=== PATIENT | female | born 1930 | race Caucasian/White ===

== ENCOUNTER 2016-12-14 20:40 | Emergency (ER) | payer MEDICARE ==
[~2016-12-14] VITALS: Ht 158.8 cm; Wt 77.3 kg
[~2016-12-14 20:40] MED LIST: ALBU18HF INH; AMLO2.5T PO; EPIN0.3P2 IJ; GLIM2TAB2 PO; HYDR-3825 PO; HYDR-4003 PO; LETR2.5T4 PO; LEVO112T4 PO; LOPE1TAB13 PO; METO-272 PO; OMEP20CA11 PO; ONDA-53 PO; SIMV40TA5 PO; WARF4TAB6 PO
[2016-12-14 20:49] VITALS: BP 153/91; PULSE 89; RESP 15; O2SAT 97
[2016-12-14 21:12] LABS: BASOPHILS % (AUTO) 0.5 % (0-3); EOSINOPHILS % (AUTO) 1.3 % (0-5); Mean Corpuscular Hemoglobin 30.6 pg (27.0-35.0); Mean Corpuscular Volume 93.9 fL (81-100); NEUTROPHILS % (AUTO) 73.7 % (40-74); Platelet Count 310 bil/L (150-400)
--- NOTE | 2016-12-14 21:35 | DRSVH ---
PROCEDURE: X-RAY CHEST, TWO VIEWS ([id number]) INDICATIONS: CHEST PAIN TECHNIQUE: 2 views of the chest were acquired. COMPARISON: [facility], CR, XR CHEST 1VW (PORTABLE), 11/05/2016, 14:46. FINDINGS: Surgical changes and devices: Cholecystectomy clips, left upper quadrant abdominal surgical clips an d left breast surgical clips are noted. Lungs and pleura: No pleural effusions or pneumothorax. Lungs are clear. Mediastinum: Mediastinal contours are normal. Heart size is normal. Bones and chest wall: No suspicious bony abnormalities. Soft tissues appear unremarkable. IMPRESSION: No acute cardiopulmonary disease process. Dictated by: Luisa Meadows MD, PhD on 12/14/2016 at 21:34 Approved by: Luisa Meadows MD, PhD on 12/14/2016 at 21:34
[2016-12-14 21:41] LABS: TROPONIN T 0.01 ug/L (0.0-0.011)
[2016-12-14 21:43] LABS: Magnesium 1.2 mg/dL (1.6-2.6)
[2016-12-14 23:10] VITALS: BP 157/63; PULSE 67; RESP 12; O2SAT 98
--- NOTE | 2016-12-15 01:29 | ED.REPORT ---
HPI-Chest Pain 40 and Over Date of Service Dec 15, 2016 ED Provider: Diomedes Patel MD Pt is an 86 y/o female w/ a hx of T2DM, HTN, hyperlipidemia, paroxysmal SVT, hypomagnesemia, presenting to the ED c/o intermittent rapid palpitations onset 1830 today. She has a history of near-syncopal episodes associated with rapid palpitations and has come in many times with negative workups. She comes in today because she felt another episode of rapid palpitations with associated lightheadedness mostly when she stands up from sitting down. She denies fever, chills, CP, SOB. Her magnesium was stopped because it was causing her constipation. Nursing Notes Stated Complaint: FAST HEARTBEAT, HIGH BLOOD PRESSURE Chief Complaint: Dysrhythmia/Cardiac Nursing Notes Reviewed: Yes Allergies: Coded Allergies: Quinolones (Verified Allergy, Severe, 11/05/16) Salicylates (Verified Allergy, Severe, 11/05/16) Sulfa (Sulfonamide Antibiotics) (Verified Allergy, Severe, 11/05/16) aspirin (Verified Allergy, Severe, 11/05/16) atorvastatin (Verified Allergy, Severe, 11/05/16) adhesive (Verified Allergy, Unknown, unkown, 11/05/16) banana (Verified Allergy, Unknown, 11/05/16) doxycycline (Verified Allergy, Unknown, 11/05/16) glyburide (Verified Allergy, Unknown, 03/04/15) levofloxacin (Verified Allergy, Unknown, 12/14/16) Oat (Verified Adverse Reaction, Mild, HEARTBURN, 11/05/16) [place] (Verified Adverse Reaction, Mild, ABD PAIN, 11/05/16) Wheat (Verified Adverse Reaction, Mild, PAIN IN ABD, 11/05/16) Uncoded Allergies: Nuts (not peanuts) (Adverse Reaction, Severe, Anaphylaxis, 10/31/14) Scheduled Amlodipine (Amlodipine) 2.5 Mg Tablet 2.5 MG PO DAILY Glimepiride (Glimepiride) 2 Mg Tablet 1 MG PO DAILYAC Letrozole (Letrozole) 2.5 Mg Tablet 2.5 MG PO DAILY Levothyroxine (Levothyroxine) 112 Mcg Tablet 56 MCG PO DAILY Magnesium Chloride (Slow-Mag) 64 Mg Tablet 64 MG PO QID Metoprolol Succinate ER (Metoprolol Succinate ER) 50 Mg Tab.er.24h 50 MG PO BID Omeprazole (Omeprazole) 20 Mg Capsule.dr 20 MG PO DAILY Ondansetron (Ondansetron) 4 Mg Tablet 8 MG PO BID Simvastatin (Simvastatin) 40 Mg Tablet 40 MG PO HS Warfarin Sodium (Warfarin Sodium) 4 Mg Tablet 6 MG PO WED & SAT Warfarin Sodium (Warfarin Sodium) 4 Mg Tablet 4 MG PO DAILY EXC WE,SAT Scheduled PRN Albuterol Sulfate (Ventolin HFA Inhaler) 200 Puff/18 Gm Inhaler 2 PUFF INH Q4- 6H PRN PRN For Wheezing Hydrocodone-Acetaminophen 5-325 mg (Hydrocodone-Acetaminophen 5-325 mg) 1 Each Tablet 1 TABLET PO Q6H PRN PRN For Pain Hydrocodone-Acetaminophen 7.5-325 mg (Hydrocodone-Acetaminophen 7.5-325 mg) 1 Each Tablet 1 EACH PO Q6H PRN PRN For Pain Loperamide/Simethicone (Imodium Multi-Symptom Rel Cplt) 1 Each Tablet 2 EACH PO BID PRN PRN For Diarrhea or Loose Stool Miscellaneous Medications Epinephrine (Epipen 2-Reid) 0.3 Mg/0.3 Ml Auto.injct 0.3 MG IJ General Time Seen by MD: 00:25 Chief Complaint Other (Palpitations) Hx Obtained From: Patient Arrived By: Walk-in Sudden in Onset?: Yes Onset Occurred: 5 - 8 hours ago Symptom Duration: Since onset Severity: Current: No pain currently Severity: Maximum: No pain Recent Healthcare: Previous diagnosis, Prior workup Similar Sx Previous: Yes Past Medical History Past Medical History Notes: Oncologist for Stage 1 Breast CA: Fredrick Peoples Past Medical History 1. Type 2 mlc-syvhtpa-ieeclmqao diabetes since 1993. 2. History of pulmonary embolus in 2008 on chronic anticoagulation. 3. Hypertension. 4. Hyperlipidemia. 5. Excess weight. 6. Gastroesophageal reflux disease. 7. Hypothyroidism. 8. History of colon polyps. 9. History of pyelonephritis with left partial nephrectomy in 1999. 10. History of supraventricular tachycardia. 11. Chronic back pain. 12. Total hip arthroplasty in 2005. 13. Hypomagnesemia. Reports: Cancer Past Surgical History Shoulder surgery Hip replacement Partial nephroctomy due to pyelonephritis Tubal repair Partial Mastectomy Reports: Appendectomy, Cholecystectomy Smoking History Never Smoker Social History Alcohol Use: Denies alcohol use Drug Use: Denies drug use Other Social History: Local resident Ambulatory Status Independent Review of Systems Constitutional: Denies: Chills, Fever Cardiovascular: Reports: Palpitations, Denies: Chest pain GI: Denies: Nausea, Vomiting Skin: Denies Diaphoresis Neurologic: Reports: Lightheaded Complete sys rev & neg: except as marked. Physical Exam Initial Vital Signs Vital Signs (First) Date Time Temp Pulse Resp B/P Pulse Ox O2 Delivery O2 Flow Rate FiO2 12/14/16 20:49 36.8 89 15 153/91 97 Room Air Initial VS: Reviewed, Vital signs normal Head / Eyes: Atraumatic, Normocephalic, PERRL ENT: Mucous membranes moist, Conjunctiva normal, No scleral icterus Neck: Supple, Full range of motion Extremities: Vascular intact, Neuro intact, No swelling, No tenderness Skin: Warm, Dry, No cyanosis Neurologic: Alert, Oriented, Nonfocal Psychiatric: Mood/affect normal, Behavior normal, Normal thought content General/Constitutional: Awake, Alert, No acute distress, Well appearing, Cooperative, Not toxic appearing Respiratory / Chest: Atraumatic, Breath sounds NL, Breath sounds = bilat, No respiratory distress, No rales, No rhonchi, No wheezing, No retractions, No stridor, No chest tenderness, No chest wall deformity, No crepitus Cardiovascular: Heart rate NL, Heart sounds NL, No gallop, No murmurs, No rubs , Cap refill not delayed, Peripheral circulation NL Infrequent pauses Abdomen: Atraumatic, Soft Interpretation & Diagnostics Lab Results Interpretation Result Diagram: 12/14/16210412/14/16 210 Test 12/14/16 21:05 White Blood Count 8.5th/mm3 (3.8-10.1) Red Blood Count 3.79mil/mm3 (3.90-5.20) Hemoglobin 11.6g/dL (12.0-15.6) Hematocrit 35.6% (35.0-46.0) Mean Corpuscular Volume 93.9fL (81-100) Mean Corpuscular Hemoglobin 30.6pg (27.0-35.0) Mean Corpuscular Hemoglobin Concent 32.6% (32.0-37.0) Red Cell Distribution Width 12.1% (12.3-15.4) Platelet Count 310bil/L (150-400) Neutrophils (%) (Auto) 73.7% (40-74) Lymphocytes (%) (Auto) 18.3% (14-46) Monocytes (%) (Auto) 6.0% (4-12) Eosinophils (%) (Auto) 1.3% (0-5) Basophils (%) (Auto) 0.5% (0-3) Sodium Level 140mEq/L (134-144) Potassium Level 4.7mEq/L (3.5-5.2) Chloride Level 100mEq/L (97-108) Carbon Dioxide Level 26mmol/L (18-29) Blood Urea Nitrogen 24mg/dL (8-27) Creatinine 1.21mg/dL (0.57-1.00) Estimat Glomerular Filtration Rate 61mL/min (>59) Glucose Level 241mg/dL (60-99) Calcium Level 9.3mg/dL (8.5-10.1) Magnesium Level 1.2mg/dL (1.6-2.6) Total Bilirubin 0.3mg/dL (0.0-1.2) Aspartate Amino Transf (AST/SGOT) 20U/L (0-50) Alanine Aminotransferase (ALT/SGPT) 15U/L (0-32) Alkaline Phosphatase 23U/L (25-165) Troponin T 0.010ug/L (0.0-0.011) Total Protein 7.2g/dL (6.4-8.4) Albumin 3.9g/dL (3.4-5.0) Hold Espino Top Tube Received (Received) Lab Results Interpretation: Hyperglycemia and hypomagnesemia. ECG Interpretation ECG Interpretation: Sinus rhythm rate 70 No QT prolongation Prolonged WI interval - WI 296 Review of remote telemetry shows 5-6 sinus pauses and 5-6 PVCs Time: 01:39 Interpreted by: ED physician Normal ECG Interpretation: No acute ischemic changes X-Ray Chest Interpretation Chest Xray Interpretation: IMPRESSION: No acute cardiopulmonary disease process. Dictated by: Luisa Meadows MD, PhD on 12/14/2016 at 21:34 Approved by: Luisa Meadows MD, PhD on 12/14/2016 at 21:34 View: Portable, AP & lat Interpretation / Wet Read by: Interpret - Radiologist Re-Eval/Medical Decision Med Decision/Clinical Course 86-year-old female who presents with palpitations. She is in the past been known to have low magnesium but has not been taking her magnesium because she says it makes her constipated. She is found on laboratory testing to have low magnesium at 1.2. She was given 4 mg of IV magnesium and encouraged to restart her oral magnesium, using MiraLAX if it truly does cause constipation. 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 No higher grade arrhythmia was noted. She is being referred back to her primary doctor for recheck of her magnesium and possible long-term cardiac monitoring. Time of Eval: 05:06 Re-Evaluation/Progress Note: Pt rechecked after magnesium infusion is complete. Informed pt of plan for treatment. Pt understands and agrees with plan for treatment. F/U instructions and RTER warnings given. All questions addressed. 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 Neither of these is particularly dangerous. You also had low magnesium and these may be related to low magnesium. You need to restart magnesium, prescription included below. Magnesium usually treats constipation but you can use MiraLAX if you need to for constipation. Follow up with your regular doctor for repeat magnesium level in the next week or so. Referrals: Travis Betts (PCP) Sanketibroyce Attestation Portions of this note were transcribed by Bala Anders. I, Dr. Patel personally performed the history, physical exam and medical decision-making; I reviewed and confirmed the accuracy of the information in the transcribed note. Signed by Eboni Rogel, 12/15/16 - 0200 copies to: Travis Betts Howard L MD Dec 15, 2016 01:29 BALA ANDERS Dec 15, 2016 01:31
[2016-12-15] MEDS ORDERED: Magnesium Sulf 4 Gm/100 mL H2O 4 GM in IV Premix 1 EACH IV ONE (01:30)
[2016-12-15 04:18] VITALS: BP 164/67; PULSE 67; RESP 14; O2SAT 96
[2016-12-15] MEDS ORDERED: SLO64 PO (05:11)
[2016-12-15 05:25] VITALS: BP 133/57; PULSE 63; RESP 16; O2SAT 95
[2017-01-17] MEDS ORDERED: CHOL500011 PO (14:38)
[2017-01-17] MEDS ORDERED: MAGN250T29 PO (14:38)
[2017-01-17] MEDS ORDERED: PRAV10TA2 PO (14:38)
== END 2016-12-15 05:26 | disposition home or self-care (01) ==
LOC: SED 20:40
DX: E83.42 Hypomagnesemia (principal); I49.8 Other specified cardiac arrhythmias; I49.3 Ventricular premature depolarization; R42 Dizziness and giddiness; E11.65 Type 2 diabetes mellitus with hyperglycemia; I10 Essential (primary) hypertension; E78.5 Hyperlipidemia, unspecified; K21.9 Gastro-esophageal reflux disease without esophagitis; Z86.79 Personal history of other diseases of the circulatory system; Z79.01 Long term (current) use of anticoagulants; Z86.711 Personal history of pulmonary embolism; Z88.1 Allergy status to other antibiotic agents; Z88.8 Allergy status to other drugs, medicaments and biological substances; Z88.2 Allergy status to sulfonamides; Z88.6 Allergy status to analgesic agent

== ENCOUNTER 2017-06-04 06:58 | Emergency (ER) | payer MEDICARE ==
[~2017-06-04] VITALS: Ht 157.5 cm; Wt 77.3 kg
[~2017-06-04 06:58] MED LIST changes: +CHOL500011 PO; -HYDR-4003 PO; +MAGN250T29 PO; -ONDA-53 PO; +PRAV10TA2 PO; -SIMV40TA5 PO
[2017-06-04 07:01] VITALS: BP 194/74; PULSE 64; RESP 18; O2SAT 97
--- NOTE | 2017-06-04 07:13 | ED.REPORT ---
HPI-General Illness Date of Service Jun 04, 2017 ED Provider: Amelia Manrique MD Pt is an 87 year old female with a history of HTN, breast cancer, DM, A-fib, and hyperlipidemia who presents to the ED with concerns about a low blood pressure reading. She c/o associate malaise. She denies any other symptoms. The pt reports that her blood pressure was 129/45 at home and that this has not happened previously. She states that her "head feels funny". She has had a stressful few days with her home living situation as well as quite a bit of paddy and work yesterday. She was wondering if she was perhaps "listing" to the left for a bit yesterday. This has resolved. She notes that a sister and brother have both had strokes and she was concerned. She has no other signs or symptoms of stroke at this time. With her hypertension and atrial fibrillation she certainly has risk factors. Nursing Notes Stated Complaint: LOW BLOOD PRESSURE Chief Complaint: General Complaint Nursing Notes Reviewed: Yes Allergies: Coded Allergies: Quinolones (Verified Allergy, Severe, 11/05/16) Salicylates (Verified Allergy, Severe, 11/05/16) Sulfa (Sulfonamide Antibiotics) (Verified Allergy, Severe, 11/05/16) aspirin (Verified Allergy, Severe, 11/05/16) atorvastatin (Verified Allergy, Severe, 11/05/16) adhesive (Verified Allergy, Unknown, unkown, 11/05/16) banana (Verified Allergy, Unknown, 11/05/16) doxycycline (Verified Allergy, Unknown, 11/05/16) glyburide (Verified Allergy, Unknown, 03/04/15) levofloxacin (Verified Allergy, Unknown, 12/14/16) Oat (Verified Adverse Reaction, Mild, HEARTBURN, 11/05/16) [place] (Verified Adverse Reaction, Mild, ABD PAIN, 11/05/16) Wheat (Verified Adverse Reaction, Mild, PAIN IN ABD, 11/05/16) Uncoded Allergies: Nuts (not peanuts) (Adverse Reaction, Severe, Anaphylaxis, 10/31/14) Scheduled Cholecalciferol (Vitamin D3) (Vitamin D3) 5,000 Unit Tablet 5,000 UNIT PO DAILY Glimepiride (Glimepiride) 2 Mg Tablet 1 MG PO DAILYAC Levothyroxine (Levothyroxine) 112 Mcg Tablet 56 MCG PO DAILY Magnesium Oxide (Magnesium) 250 Mg Tablet 250 MG PO DAILY Metoprolol Succinate ER (Metoprolol Succinate ER) 50 Mg Tab.er.24h 50 MG PO BID Omeprazole (Omeprazole) 20 Mg Capsule.dr 20 MG PO DAILY Pravastatin (Pravastatin) 10 Mg Tablet 10 MG PO HS Warfarin Sodium (Warfarin Sodium) 4 Mg Tablet 4 MG PO DAILY Scheduled PRN Albuterol Sulfate (Ventolin HFA Inhaler) 200 Puff/18 Gm Inhaler 2 PUFF INH Q4- 6H PRN PRN For Wheezing Hydrocodone-Acetaminophen 7.5-325 mg (Hydrocodone-Acetaminophen 7.5-325 mg) 1 Each Tablet 1 EACH PO Q6H PRN PRN For Pain Loperamide/Simethicone (Imodium Multi-Symptom Rel Cplt) 1 Each Tablet 2 EACH PO BID PRN PRN For Diarrhea or Loose Stool Miscellaneous Medications Epinephrine (Epipen 2-Reid) 0.3 Mg/0.3 Ml Auto.injct 0.3 MG IJ General Time Seen by MD: 07:11 Chief Complaint Other (Low blood pressure) Hx Obtained From: Patient Arrived By: Walk-in Sudden in Onset?: No Onset Occurred: Just prior to arrival Symptom Duration: Since onset Severity: Current: No pain currently Severity: Maximum: No pain Recent Healthcare: Recent doctor visit Similar Sx Previous: No Past Medical History Past Medical History Notes: Oncologist for Stage 1 Breast CA: Fredrick Peoples Past Medical History 1. Type 2 uoy-dojjuhx-xyjkneosu diabetes since 1993. 2. History of pulmonary embolus in 2008 on chronic anticoagulation. 3. Hypertension. 4. Hyperlipidemia. 5. Excess weight. 6. Gastroesophageal reflux disease. 7. Hypothyroidism. 8. History of colon polyps. 9. History of pyelonephritis with left partial nephrectomy in 1999. 10. History of supraventricular tachycardia. 11. Chronic back pain. 12. Total hip arthroplasty in 2005. 13. Hypomagnesemia. Reports: Cancer Past Surgical History Shoulder surgery Hip replacement Partial nephroctomy due to pyelonephritis Tubal repair Partial Mastectomy Reports: Appendectomy, Cholecystectomy Smoking History Never Smoker Social History Alcohol Use: Denies alcohol use Drug Use: Denies drug use Other Social History: Local resident Ambulatory Status Independent Review of Systems + low blood pressure (129/45) Full Review of Systems Constitutional: Reports: Malaise, Denies: Fever Respiratory: Denies: Non-productive cough, Shortness of breath Complete sys rev & neg: except as marked. Physical Exam Vital Signs Vital Signs Date Time Temp Pulse Resp B/P Pulse Ox O2 Delivery O2 Flow Rate FiO2 06/04/17 07:16 64 12 179/84 100 Room Air 06/04/17 07:01 36.6 64 18 194/74 97 Room Air Initial VS: Reviewed Head / Eyes: Atraumatic, Normocephalic Neck: Supple, Full range of motion Respiratory: Breath sounds normal, Clear to auscultation, No respiratory distress Cardiovascular: Regular rate & rhythm, Heart sounds normal, Intact distal pulses Abdomen / GI: Soft, Non-tender, No guarding, No rebound Back: No CVA tenderness Extremities: Vascular intact, Neuro intact (NIH stroke score of 0. She is able to stand up and balance on left foot and then right foot respectively) Skin: Warm, Dry, No cyanosis Neurologic: Alert, Oriented, Nonfocal Psychiatric: Mood/affect normal, Behavior normal General/Constitutional: Awake, Alert, Cooperative Re-Eval/Medical Decision Med Decision/Clinical Course No specific complaints today. Feels much better after chatting a bit this morning. I think her main concern was the possibility of a stroke when she felt a bit off balance yesterday. Exam done, reassurance given. Discussed normal findings and suggested no need for additional workup, she agrees. They have suggested that she continue with her blood pressure medications and follow-up with Dr. Watkins. I also suggested that she rest today after the significant day of paddy yesterday. Source of Hx: Old records Counseled Regarding: Diagnosis, Need for follow-up, When/why to return to ED Discharge & Departure Primary Impression: Hypertension Disposition: Home Discharge Condition All VS Reviewed: Yes Condition: Stable Additional Instructions: Thank You for coming in today. I understand you a bit concerned with her head feeling funny and worried that you may have signs of a stroke. On my exam today, aside from your blood pressure, everything looks just fine and I see no evidence for a stroke. I suspect that you probably overdid it a little bit yesterday with all of the paddy. I hope you get to enjoy all of the efforts and that the rhubarb/ pineapple turns out fantastic When you get home this morning, please take all of your morning pills. If you are getting worse, please return to the emergency department. Please schedule an appointment with Dr. Zuniga to make sure the ear blood pressure is as controlled as it should be Referrals: Travis Betts (PCP) Eboni Attestation Portions of this note were transcribed by Keshia Soria. I, Dr. Manrique personally performed the history, physical exam and medical decision-making; I reviewed and confirmed the accuracy of the information in the transcribed note. Signed by: Eboni Lopez, 06/04/17 and 08:40. copies to: Lee Zuniga MD; Travis Betts Shawna L MD Jun 04, 2017 07:13 Keshia Salazar Jun 04, 2017 07:25
[2017-06-04 07:16] VITALS: BP 179/84; PULSE 64; RESP 12; O2SAT 100
[2017-06-04 07:57] VITALS: BP 151/46; PULSE 60; RESP 12; O2SAT 98
[2017-06-04 07:58] VITALS: BP 151/46; PULSE 60; RESP 12; O2SAT 98
== END 2017-06-04 08:05 | disposition home or self-care (01) ==
LOC: SED 06:58
DX: I10 Essential (primary) hypertension (principal); E11.9 Type 2 diabetes mellitus without complications; I48.91 Unspecified atrial fibrillation; E78.5 Hyperlipidemia, unspecified; K21.9 Gastro-esophageal reflux disease without esophagitis; E03.9 Hypothyroidism, unspecified; C50.919 Malignant neoplasm of unspecified site of unspecified female breast; Z86.711 Personal history of pulmonary embolism; Z79.01 Long term (current) use of anticoagulants; Z88.1 Allergy status to other antibiotic agents; Z88.2 Allergy status to sulfonamides; Z88.6 Allergy status to analgesic agent; Z88.8 Allergy status to other drugs, medicaments and biological substances